=== PATIENT | female | born 1955 | race Caucasian/White ===

== ENCOUNTER 2018-06-29 13:15 | Emergency (ER) | payer BC, OTHER ==
[~2018-06-29] VITALS: Ht 165.1 cm; Wt 83.9 kg
[~2018-06-29 13:15] MED LIST: ASA81BEC PO; BENICAR20 MG PO; BENTYL20 MG PO; COLESTIPOL HCL1 G1 PO; HCTZ; HYDROCHLOROTHIA25 M2 PO; LIPITOR10 MG PO; NORCO 5-325 TA1 EACH PO; OMEPRAZOLE40 MG PO; PEPCID40 MG PO; PHENERGAN 25 MG25 MG PO; WELCHOL; ZOFRAN ODT4 MG PO
[2018-06-29 13:47] LABS: ABSOLUTE LYMPHOCYTES 1.6 thou/uL (0.8-5.3); ABSOLUTE MONOCYTES 0.4 thou/uL (0.0-1.2); ABSOLUTE NEUTROPHILS 3.6 thou/uL (1.6-8.1); BASOPHILS 0.5 %; EOSINOPHILS 0.5 %; HEMOGLOBIN 14.2 gm/dL (12.0-15.0); LYMPHOCYTES 28.2 %; MCH 30.9 pg (26.0-34.0); MCHC 33.7 g/dL (28.0-37.0); MCV 91.5 fL (80.0-100.0); MONOCYTES 6.8 %; MPV 8.3 fl. (7.2-11.1); NUCLEATED RBCS 0 /100WBC; PLATELET COUNT* 212 thou/uL (150-400); RBC 4.59 mil/uL (4.20-5.00); RDW-CV 13.9 % (10.5-14.5); WBC 5.7 thou/uL (4.0-11.0)
[2018-06-29 13:52] LABS: ANION GAP 5 mmol/L (7-16); BUN 14 mg/dL (7-18); CALCIUM 8.5 mg/dL (8.5-10.1); CHLORIDE 106 mmol/L (98-107); CO2 29 mmol/L (21-32); CREATININE 0.9 mg/dL (0.6-1.3); GLUCOSE 111 mg/dL (70-99); POTASSIUM 3.7 mmol/L (3.5-5.1); SODIUM 140 mmol/L (136-145)
[2018-06-29 13:53] LABS: APTT 26.7 Seconds (25.0-31.3); INR 1.1; PROTIME 10.7 Seconds (9.20-11.50)
[2018-06-29 13:58] LABS: ALBUMIN 3.7 g/dL (3.4-5.0); ALKALINE PHOSPHATASE 119 U/L (46-116); LIPASE 203 U/L (73-393); SGOT 18 U/L (15-37); SGPT 26 U/L (30-65); TOTAL BILIRUBIN 1.1 mg/dL (<0.1-1.0); TOTAL PROTEIN 6.8 g/dL (6.4-8.2); TROPONIN-I LEVEL <0.06 ng/mL (<0.06)
[2018-06-29 14:21] LABS: URINE BILIRUBIN NEGATIVE (Negative); URINE BLOOD NEGATIVE (Negative); URINE CLARITY CLEAR; URINE COLOR YELLOW; URINE GLUCOSE-RANDOM NEGATIVE (Negative); URINE KETONES NEGATIVE (Negative); URINE LEUKOCYTES-REFLEX NEGATIVE (Negative); URINE NITRITE-REFLEX NEGATIVE (Negative); URINE PROTEIN NEGATIVE (Negative); URINE UROBILINOGEN 0.2 E.U./dl (0.2-1.0)
--- NOTE | 2018-06-29 15:07 | EKG ---
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: : 1955 Requested By: Husam Willard Order Number: [id number] MD: Felix Regalado Measurements Intervals [place] Rate: 105 P: 68 SD: 122 QRS: 21 QRSD: 77 T: 29 QT: 331 QTc: 438 Interpretive Statements Sinus tachycardia Probable left atrial enlargement Compared to ECG 04/28/2016 23:43:07 Sinus rhythm no longer present Electronically Signed On 06-29-2018 15:07:41 CDT by Felix Regalado [email or web address] <ELECTRONICALLY SIGNED> By: Felix Regalado MD, [facility] 06/29/18 1507 1335 1335 Felix Regalado MD, FACC /EPI
[2018-06-29] MEDS ORDERED: ZOFRAN ODT4 MG SUBLING (15:14)
[2018-06-29 15:26] VITALS: BP 147/90
== END 2018-06-29 15:27 | disposition home or self-care (01) ==
LOC: M.ERS 13:15
PROVIDERS: Family Medicine
DX: R10.30 Lower abdominal pain, unspecified (principal); R11.2 Nausea with vomiting, unspecified; I10 Essential (primary) hypertension; Z90.49 Acquired absence of other specified parts of digestive tract; Z90.710 Acquired absence of both cervix and uterus

== ENCOUNTER 2018-11-17 10:56 | Emergency (ER) | payer BC, OTHER ==
[~2018-11-17] VITALS: Ht 165.1 cm; Wt 83.9 kg
[~2018-11-17 10:56] MED LIST changes: +ZOFRAN ODT4 MG SUBLING
[2018-11-17 11:35] LABS: ABSOLUTE EOSINOPHILS 0.1 thou/uL (0.0-0.7); ABSOLUTE LYMPHOCYTES 0.9 thou/uL (0.8-5.3); ABSOLUTE MONOCYTES 0.5 thou/uL (0.0-1.2); BASOPHILS 0.6 %; HEMATOCRIT 44.2 % (37.0-47.0); HEMOGLOBIN 14.6 gm/dL (12.0-15.0); MCH 30.6 pg (26.0-34.0); MCHC 33.1 g/dL (28.0-37.0); MCV 92.5 fL (80.0-100.0); MONOCYTES 9.1 %; MPV 8.4 fl. (7.2-11.1); NUCLEATED RBCS 0 /100WBC; PLATELET COUNT* 191 thou/uL (150-400); POLYS 72.3 %; RBC 4.78 mil/uL (4.20-5.00); RDW-CV 13.7 % (10.5-14.5); WBC 5.5 thou/uL (4.0-11.0)
[2018-11-17 11:36] LABS: URINE BLOOD NEGATIVE (Negative); URINE CLARITY CLEAR; URINE COLOR YELLOW; URINE GLUCOSE-RANDOM NEGATIVE (Negative); URINE KETONES TRACE (Negative); URINE LEUKOCYTES-REFLEX NEGATIVE (Negative); URINE NITRITE-REFLEX NEGATIVE (Negative); URINE PROTEIN TRACE (Negative); URINE SPECIFIC GRAVITY >= 1.030 (1.005-1.030); URINE UROBILINOGEN 0.2 E.U./dl (0.2-1.0)
[2018-11-17 11:37] LABS: ICTOTEST (BILI CONFIRMATORY) Negative (Negative); URINE BILIRUBIN 1+ (Negative)
[2018-11-17 11:45] LABS: POTASSIUM 3.5 mmol/L (3.5-5.1)
[2018-11-17 11:54] LABS: ALBUMIN 3.7 g/dL (3.4-5.0); TOTAL BILIRUBIN 1.4 mg/dL (<0.1-1.0); TOTAL PROTEIN 7.2 g/dL (6.4-8.2)
[2018-11-17] MEDS ORDERED: ROBAXIN 750 MG750 M1 PO (12:45)
[2018-11-17] MEDS ORDERED: LOPERAMIDE 2 MG2 M1 PO (12:45)
[2018-11-17] MEDS ORDERED: ZOFRAN ODT4 MG PO (13:51)
[2018-11-17 14:02] VITALS: BP 113/71
== END 2018-11-17 14:06 | disposition home or self-care (01) ==
LOC: M.ERS 10:56
PROVIDERS: Physician Assistant
DX: R19.7 Diarrhea, unspecified (principal); E86.0 Dehydration; R11.2 Nausea with vomiting, unspecified; I10 Essential (primary) hypertension; Z90.49 Acquired absence of other specified parts of digestive tract; Z90.710 Acquired absence of both cervix and uterus; Z98.84 Bariatric surgery status

== ENCOUNTER 2018-11-20 09:37 | Emergency (ER) | payer BC, OTHER ==
[~2018-11-20] VITALS: Ht 134.6 cm; Wt 83.9 kg
[~2018-11-20 09:37] MED LIST changes: +LOPERAMIDE 2 MG2 M1 PO; +ROBAXIN 750 MG750 M1 PO
[2018-11-20 10:36] LABS: ABSOLUTE MONOCYTES 0.3 thou/uL (0.0-1.2); ABSOLUTE NEUTROPHILS 2.2 thou/uL (1.6-8.1); BASOPHILS 0.7 %; EOSINOPHILS 0.9 %; HEMATOCRIT 40.1 % (37.0-47.0); HEMOGLOBIN 13.4 gm/dL (12.0-15.0); LYMPHOCYTES 28.4 %; MCH 30.5 pg (26.0-34.0); MCHC 33.4 g/dL (28.0-37.0); MCV 91.4 fL (80.0-100.0); MONOCYTES 8.1 %; MPV 8.3 fl. (7.2-11.1); NUCLEATED RBCS 0 /100WBC; PLATELET COUNT* 172 thou/uL (150-400); POLYS 61.9 %; RBC 4.39 mil/uL (4.20-5.00); RDW-CV 13.5 % (10.5-14.5); WBC 3.6 thou/uL (4.0-11.0)
[2018-11-20 10:46] LABS: CALCIUM 8.4 mg/dL (8.5-10.1); POTASSIUM 3.4 mmol/L (3.5-5.1)
[2018-11-20 10:51] LABS: ALBUMIN 3.3 g/dL (3.4-5.0); TOTAL BILIRUBIN 1.2 mg/dL (<0.1-1.0); TOTAL PROTEIN 6.3 g/dL (6.4-8.2)
[2018-11-20 11:40] LABS: URINE BILIRUBIN NEGATIVE (Negative); URINE BLOOD NEGATIVE (Negative); URINE CLARITY CLEAR; URINE COLOR YELLOW; URINE GLUCOSE-RANDOM NEGATIVE (Negative); URINE KETONES NEGATIVE (Negative); URINE LEUKOCYTES-REFLEX TRACE (Negative); URINE NITRITE-REFLEX NEGATIVE (Negative); URINE PROTEIN NEGATIVE (Negative); URINE SPECIFIC GRAVITY <= 1.005 (1.005-1.030); URINE UROBILINOGEN 0.2 E.U./dl (0.2-1.0)
[2018-11-20 11:47] LABS: CASTS None Seen /LPF (None Seen); CRYSTALS None Seen /LPF (None Seen); MUCUS None Seen strn/LPF (None Seen); SQUAMOUS 0-3 Few /LPF (0-3); URINE RBC 0-2 Rare /HPF (0-2); URINE WBC-REFLEX 0-5 Rare /HPF (0-5)
[2018-11-20] MEDS ORDERED: LOMOTIL TABLET1 EACH PO (13:12)
[2018-11-20] MEDS ORDERED: FLAGYL500 M1 PO (13:14)
[2018-11-20 13:51] VITALS: BP 145/78
--- NOTE | 2018-11-20 16:32 | EKG ---
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
== END 2018-11-20 13:52 | disposition home or self-care (01) ==
LOC: M.ERS 09:37
PROVIDERS: Personal Emergency Response Attendant
DX: R19.7 Diarrhea, unspecified (principal); I10 Essential (primary) hypertension; M41.9 Scoliosis, unspecified; Z90.710 Acquired absence of both cervix and uterus; Z90.49 Acquired absence of other specified parts of digestive tract

== ENCOUNTER 2019-04-07 02:37 | Emergency (ER) | payer BC, MEDICARE, OTHER ==
[~2019-04-07] VITALS: Ht 165.1 cm; Wt 81.7 kg
[~2019-04-07 02:37] MED LIST changes: +FLAGYL500 M1 PO; +LOMOTIL TABLET1 EACH PO
[2019-04-07] MEDS ORDERED: KEFLEX500 M1 PO (02:47)
[2019-04-07 03:11] VITALS: BP 136/82
== END 2019-04-07 03:28 | disposition home or self-care (01) ==
LOC: M.ERS 02:37
DX: S91.111A Laceration without foreign body of right great toe without damage to nail, initial encounter (principal); I10 Essential (primary) hypertension; Z90.710 Acquired absence of both cervix and uterus; Z90.49 Acquired absence of other specified parts of digestive tract; W25.XXXA Contact with sharp glass, initial encounter; Y93.89 Activity, other specified; Y92.89 Other specified places as the place of occurrence of the external cause; Y99.8 Other external cause status

== ENCOUNTER 2021-05-05 10:51 | Emergency (ER) | payer BC, MEDICARE ==
[~2021-05-05] VITALS: Ht 165.1 cm; Wt 90.7 kg
[~2021-05-05 10:51] MED LIST changes: +KEFLEX500 M1 PO
[2021-05-05 11:40] LABS: URINE BILIRUBIN NEGATIVE (Negative); URINE BLOOD NEGATIVE (Negative); URINE CLARITY SL CLOUDY; URINE COLOR YELLOW; URINE GLUCOSE-RANDOM NEGATIVE (Negative); URINE KETONES NEGATIVE (Negative); URINE LEUKOCYTES-REFLEX NEGATIVE (Negative); URINE NITRITE-REFLEX NEGATIVE (Negative); URINE PROTEIN NEGATIVE (Negative); URINE SPECIFIC GRAVITY 1.025 (1.005-1.030); URINE UROBILINOGEN 0.2 E.U./dl (0.2-1.0)
[2021-05-05 11:50] LABS: BACTERIA-REFLEX 1-9 Few /HPF (None Seen); CASTS None Seen /LPF (None Seen); CRYSTALS None Seen /LPF (None Seen); MUCUS 0-3 Light strn/LPF (None Seen); SQUAMOUS 0-3 Few /LPF (0-3); URINE RBC 0-2 Rare /HPF (0-2); URINE WBC-REFLEX 0-5 Rare /HPF (0-5)
[2021-05-05 11:59] LABS: ABSOLUTE MONOCYTES 0.2 thou/uL (0.0-1.2); NUCLEATED RBCS 0 /100WBC; WBC 4.8 thou/uL (4.0-11.0)
[2021-05-05 12:01] LABS: ABSOLUTE LYMPHOCYTES 0.9 thou/uL (0.8-5.3); ABSOLUTE NEUTROPHILS 3.6 thou/uL (1.6-8.1); BASOPHILS 0.6 %; EOSINOPHILS 0.9 %; HEMOGLOBIN 13.6 gm/dL (12.0-15.0); LYMPHOCYTES 19.7 %; MCH 30.1 pg (26.0-34.0); MCHC 33.9 g/dL (28.0-37.0); MCV 88.9 fL (80.0-100.0); MONOCYTES 4.8 %; MPV 7.9 fl. (7.2-11.1); PLATELET COUNT* 197 thou/uL (150-400); RBC 4.51 mil/uL (4.20-5.00); RDW-CV 14.6 % (10.5-14.5)
[2021-05-05 12:20] LABS: CALCIUM 8.5 mg/dL (8.5-10.1); POTASSIUM 3.7 mmol/L (3.5-5.1)
[2021-05-05 12:25] LABS: ALBUMIN 3.3 g/dL (3.4-5.0); TOTAL BILIRUBIN 1.3 mg/dL (<0.1-1.0); TOTAL PROTEIN 6.4 g/dL (6.4-8.2)
[2021-05-05] MEDS ORDERED: ZOFRAN ODT4 MG PO (13:37)
[2021-05-05] MEDS ORDERED: BENTYL 10 MG CA10 M1 PO (13:37)
[2021-05-05 14:35] VITALS: BP 133/106
--- NOTE | 2021-05-05 15:48 | EKG ---
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
[2021-05-05] MEDS ORDERED: PHENERGAN 25 MG25 M1 PO (20:47)
== END 2021-05-05 14:35 | disposition home or self-care (01) ==
LOC: M.ERS 10:51
PROVIDERS: Nurse Practitioner Family
DX: K44.9 Diaphragmatic hernia without obstruction or gangrene (principal); K57.30 Diverticulosis of large intestine without perforation or abscess without bleeding; N28.1 Cyst of kidney, acquired; I10 Essential (primary) hypertension; Z90.710 Acquired absence of both cervix and uterus; Z98.84 Bariatric surgery status

== ENCOUNTER 2021-05-05 19:23 | Emergency (ER) | payer BC, MEDICARE ==
[~2021-05-05] VITALS: Ht 165.1 cm; Wt 90.3 kg
[~2021-05-05 19:23] MED LIST changes: +BENTYL 10 MG CA10 M1 PO
[2021-05-05] MEDS ORDERED: PHENERGAN 25 MG25 M1 PO (20:47)
[2021-05-05 20:51] VITALS: BP 155/78
== END 2021-05-05 20:51 | disposition home or self-care (01) ==
LOC: M.ERS 19:23
DX: R11.2 Nausea with vomiting, unspecified (principal); R10.9 Unspecified abdominal pain; I10 Essential (primary) hypertension; Z90.49 Acquired absence of other specified parts of digestive tract; Z90.710 Acquired absence of both cervix and uterus; Z98.84 Bariatric surgery status